=== PATIENT | male | born 2005 | race Caucasian/White ===

== ENCOUNTER 2024-08-07 09:24 | Emergency (ER) | payer BC, SELFPAY ==
[2024-08-07 09:32] VITALS: BP 113/69; PULSE 50; RESP 18; TEMP 36.6; O2SAT 100
--- NOTE | 2024-08-07 09:39 | ED.EYEPROB ---
HPI - Eye Problem General Chief complaint: Eye Problems Stated complaint: [facility] Time Seen by Provider: 08/07/24 09:39 Source: patient Mode of arrival: ambulatory Limitations: no limitations History of Present Illness HPI Narrative: 18-year-old male presents with redness, drainage, itching to bilateral eyes. Started to left eye approximately 1 week ago and has now spread to right eye. Patient does wear contacts. No eye pain. Reports drainage is yellow and crusting to eyelids in the morning. No vision changes. All systems reviewed and negative except as noted above. Related Data Home Medications ?Medication ?Instructions ?Recorded ?Confirmed ?Last Taken ?Type fluoxetine 20 mg capsule mg 08/07/24 Unknown History Allergies Allergy/AdvReac Type Severity Reaction Status Date / Time No Known Allergies Allergy Verified 08/07/24 09:35 Review of Systems Review of Systems: CONSTITUTIONAL: Denies fever, chills, or sweats. EYES: Denies visual changes. Reports redness, discharge bilateral eyes, worse to left eye ENT: Denies rhinorrhea, congestion, sore throat, or otalgia. CARDIOVASCULAR: Denies chest pain, palpitations, or edema. RESPIRATORY: Denies cough or dyspnea. GASTROINTESTINAL: Denies abdominal pain, nausea, vomiting, or diarrhea. GENITOURINARY: Denies dysuria or hematuria. SKIN: Denies rash or itching. MUSCULOSKELETAL: Denies back pain, joint pain, or myalgia. NEUROLOGIC: Denies headache, numbness, or weakness. PSYCHIATRIC: Denies anxiety or depression. All other systems reviewed are negative, except as documented in HPI. PMFSH Comments At time of signature, agree with nursing past medical, surgical, social and family history. There is no relevant family history pertinent to the presenting complaint. Exam Narrative: GENERAL: This is a well-nourished, well-developed patient, in no apparent distress. HEAD: normocephalic, atraumatic. EYES: PERRL. Erythema to sclera and conjunctiva bilateral eyes, worse to left eye. Mild periorbital swelling to eye. EARS: External ears normal NOSE: External nose normal NECK: Neck supple, non-tender without lymphadenopathy, masses or thyromegaly. CARDIOVASCULAR: Regular rate and rhythm without murmurs, gallops, or rubs. RESPIRATORY: Clear to auscultation. Breath sounds equal bilaterally. No wheezes, rales, or rhonchi. SKIN: warm, Dry, intact with no suspicious lesions or rash, good texture and turgor. NEURO: awake, alert, and oriented to person, place and time. There were no obvious focal neurologic abnormalities. EXTREMITIES: No joint tenderness, effusion, or edema noted. Course Course Level of Care: Express Care Visit Vital Signs Vital signs: Vital Signs Temperature 36.6 C 08/07/24 09:32 Pulse Rate 50 L 08/07/24 09:32 Respiratory Rate 18 08/07/24 09:32 Blood Pressure 113/69 08/07/24 09:32 Pulse Oximetry 100 08/07/24 09:32 Temperature 36.6 C 08/07/24 09:32 Pulse Rate 50 L 08/07/24 09:32 Respiratory Rate 18 08/07/24 09:32 Blood Pressure 113/69 08/07/24 09:32 Pulse Oximetry 100 08/07/24 09:32 Reviewed MDM - Eye Problem MDM Narrative Medical decision making narrative: Will treat bacterial conjunctivitis with antibiotic eyedrops. Differential Diagnosis Differential diagnosis: Likely corneal abrasion, conjunctivitis and periorbital cellulitis Discharge Plan Discharge Clinical Impression: Acute bacterial conjunctivitis of both eyes Patient Disposition: Home Condition: Stable Instructions: Antibiotic Form, Conjunctivitis (ED) Additional Instructions: Place antibiotic eyedrops as prescribed. Wash hands before and after placing eyedrops. May take Claritin or Zyrtec to treat eye itching. Throw away current pair of contacts. Do not replace new pair of contacts until antibiotic prescription has been completed and symptoms resolved. Follow-up with your explosive ordnance disposal specialist for any worsening of symptoms. Patient Language: Egyptian Prescriptions: New polymyxin B sulf-trimethoprim 10,000 unit- 1 mg/mL drops 1 drp EACH EYE Q3H 7 Days Qty: 10 0RF Rx Instructions: while awake; do not exceed 6 doses in 24 hours No Action fluoxetine 20 mg capsule Follow-up/Referrals: Amarilis Marcial, RT(R) [Primary Care Provider] - Stand Alone Forms: Work/School Release IP Time of Disposition: 09:43
== END 2024-08-07 09:50 | disposition home or self-care (01) ==
PROVIDERS: Emergency Provider Nurse Practitioner Family
DX: H10.33 Unspecified acute conjunctivitis, bilateral (principal)
CPT/HCPCS: 99203; G0463